=== PATIENT | male | born 1985 ===

== ENCOUNTER 2020-08-23 11:17 | Outpatient (REF) | payer OTHER, SELFPAY ==
[2020-08-23 14:14] LABS: Estimated Average Glucose 186 mg/dL; Hemoglobin A1c % 8.1 %
[2020-08-23 14:31] LABS: Creatinine Urine 103.78 mg/dL; Microalbum/Creatinine Ratio Ur 74.1 ug/mg cr
[2020-08-23 14:39] LABS: Alanine Aminotransferase 33 U/L (0-40); Albumin Level 4.5 g/dL (3.5-5.0); Alkaline Phosphatase 107 U/L (39-117); Anion Gap 17 (12-20); Aspartate Amino Transferase 21 U/L (5-37); Bilirubin Total 0.6 mg/dL (0.0-1.0); Blood Urea Nitrogen 15 mg/dL (9-16); Calcium 9.4 mg/dL (8.4-10.2); Carbon Dioxide 27 mmol/L (22-29); Chloride 102 mmol/L (96-108); Cholesterol 221 mg/dL; Estimated Glomerular Filt Rate > 60; Glucose Fasting 109 mg/dL (60-99); HDL Cholesterol 52 mg/dL; LDL Cholesterol Calculated 139 mg/dl; Potassium 4.8 mmol/L (3.3-5.1); Sodium 141 mmol/L (135-145); Total Protein 7.7 g/dL (6.5-8.0); Triglycerides 153 mg/dL
== END 2020-08-23 11:18 | disposition home or self-care (01) ==
LOC: HO.HMGCLDS 11:17
PROVIDERS: PCP Internal Medicine; Visit Provider Internal Medicine
DX: I10 Essential (primary) hypertension (principal); E78.5 Hyperlipidemia, unspecified; E11.9 Type 2 diabetes mellitus without complications
CPT/HCPCS: 36415; 80053; 80061; 82043; 83036

== ENCOUNTER 2020-10-04 09:35 | Outpatient (REF) | payer OTHER, SELFPAY ==
[2020-10-04 12:02] LABS: Anion Gap 15 (12-20); Blood Urea Nitrogen 16 mg/dL (9-16); Calcium 9.1 mg/dL (8.4-10.2); Carbon Dioxide 26 mmol/L (22-29); Chloride 104 mmol/L (96-108); Cholesterol 191 mg/dL; Estimated Glomerular Filt Rate > 60; Glucose Random 135 mg/dL (60-115); HDL Cholesterol 54 mg/dL; LDL Cholesterol Calculated 117 mg/dl; Potassium 4.5 mmol/L (3.3-5.1); Sodium 140 mmol/L (135-145); Triglycerides 100 mg/dL
== END 2020-10-04 09:36 | disposition home or self-care (01) ==
LOC: HO.HMGCLDS 09:35
PROVIDERS: PCP Internal Medicine; Visit Provider Internal Medicine
DX: E11.9 Type 2 diabetes mellitus without complications (principal); I10 Essential (primary) hypertension; E78.5 Hyperlipidemia, unspecified
CPT/HCPCS: 36415; 80048; 80061

== ENCOUNTER 2022-07-24 12:03 | Outpatient (REF) | payer OTHER, SELFPAY ==
[2022-07-24 14:16] LABS: MANUAL DIFF FLAG NO
[2022-07-24 14:29] LABS: Basophils Absolute Auto 0.1 X10*3/uL (0.0-0.2); Basophils Percent Auto 1.2 % (0-2); Eosinophils Absolute Auto 0.3 X10*3/uL (0.0-0.4); Eosinophils Percent Auto 2.3 % (0-4); Hematocrit 47.4 % (42.0-52.0); Hemoglobin 15.4 g/dl (14.0-18.0); Imm Gran Abs Auto 0.05 X10*3/uL (0.00-0.03); Imm Gran Pct Auto 0.4 % (0.0-0.4); Lymphocytes Percent Auto 17.2 % (20-40); Mean Corpuscular HGB Conc 32.5 g/dl (31.0-36.0); Mean Corpuscular Hemoglobin 27.5 pg (27.0-33.0); Mean Corpuscular Volume 84.6 fL (80.0-98.0); Mean Platelet Volume 11.4 fL (9.4-12.4); Monocytes Absolute Auto 0.6 X10*3/uL (0.1-1.2); Monocytes Percent Auto 5.1 % (2-11); Neutrophils Absolute Auto 8.5 x10*3/uL (2.0-8.3); Neutrophils Percent Auto 73.8 % (45-73); Platelet Count 316 X10*3/uL (160-400); Red Cell Distribution Width 15.3 % (11.0-16.0); White Blood Count 11.6 X10*3/uL (4.8-10.8)
[2022-07-24 14:41] LABS: Alanine Aminotransferase 19 U/L (0-40); Albumin Level 4.4 g/dL (3.5-5.0); Alkaline Phosphatase 130 U/L (39-117); Anion Gap 16 (12-20); Aspartate Amino Transferase 18 U/L (5-37); Bilirubin Total 0.7 mg/dL (0.0-1.0); Blood Urea Nitrogen 14 mg/dL (9-16); Calcium 9.3 mg/dL (8.4-10.2); Carbon Dioxide 23 mmol/L (22-29); Chloride 104 mmol/L (96-108); Cholesterol 256 mg/dL; Estimated Glomerular Filt Rate > 60; Glucose Fasting 343 mg/dL (60-99); HDL Cholesterol 55 mg/dL; LDL Cholesterol Calculated 166 mg/dl; Sodium 138 mmol/L (135-145); Total Protein 7.7 g/dL (6.5-8.0); Triglycerides 179 mg/dL
[2022-07-24 14:46] LABS: Estimated Average Glucose 197 mg/dL; Hemoglobin A1c % 8.5 %
[2022-07-24 15:20] LABS: Creatinine Urine 196.53 mg/dL; Microalbum/Creatinine Ratio Ur 98.7 ug/mg cr
== END 2022-07-24 12:04 | disposition home or self-care (01) ==
LOC: HO.HMGCLDS 12:03
PROVIDERS: PCP Internal Medicine; Visit Provider Internal Medicine
DX: Z00.00 Encounter for general adult medical examination without abnormal findings (principal); E11.9 Type 2 diabetes mellitus without complications; E78.5 Hyperlipidemia, unspecified; I10 Essential (primary) hypertension
CPT/HCPCS: 36415; 80053; 80061; 82043; 83036; 85025

== ENCOUNTER 2022-10-09 11:48 | Outpatient (REF) | payer OTHER, SELFPAY ==
[2022-10-09 14:11] LABS: Alanine Aminotransferase 17 U/L (0-40); Alkaline Phosphatase 107 U/L (39-117); Anion Gap 13 (12-20); Aspartate Amino Transferase 13 U/L (5-37); Bilirubin Total 0.8 mg/dL (0.0-1.0); Blood Urea Nitrogen 10 mg/dL (9-16); Calcium 8.9 mg/dL (8.4-10.2); Carbon Dioxide 26 mmol/L (22-29); Chloride 101 mmol/L (96-108); Cholesterol 151 mg/dL; Estimated Average Glucose 186 mg/dL; Estimated Glomerular Filt Rate > 60; Glucose Fasting 230 mg/dL (60-99); HDL Cholesterol 45 mg/dL; Hemoglobin A1c % 8.1 %; LDL Cholesterol Calculated 83 mg/dl; Potassium 4.7 mmol/L (3.3-5.1); Sodium 135 mmol/L (135-145); Total Protein 6.7 g/dL (6.5-8.0); Triglycerides 118 mg/dL
== END 2022-10-09 11:49 | disposition home or self-care (01) ==
LOC: HO.HMGCLDS 11:48
PROVIDERS: PCP Internal Medicine; Visit Provider Internal Medicine
DX: E11.9 Type 2 diabetes mellitus without complications (principal); I10 Essential (primary) hypertension; E78.5 Hyperlipidemia, unspecified
CPT/HCPCS: 36415; 80053; 80061; 83036

== ENCOUNTER 2023-10-29 11:33 | Outpatient (AMB) | payer OTHER, SELFPAY ==
--- NOTE | 2023-10-29 11:52 | A.OFFPC_ITS ---
Vital Signs 10/29/23 11:53 Height 5 ft 10 in Weight 231 lb 2 oz BMI 33.2 BP 139/89 Blood Pressure Location Rt brachial Position Sitting Pulse 91 Pulse Source Pulse Oximeter Pulse Oximetry (%) 99 Oxygen Delivery Method Room Air Intake Visit Reasons: PE Intake Note: Pt is here today for PE. Allergies No Known Allergies Allergy (Verified 10/29/23 12:19) Medication List - Last Reconciled 10/29/23 by Micheline Diaz MD blood sugar diagnostic As directed insulin pump cart,cont inf,BT (Omnipod Dash Pods (Gen 4) subcutaneous cartridge) As directed lancets As directed losartan 100 mg PO DAILY omeprazole 20 mg PO DAILY pen needle, diabetic As directed rosuvastatin (Crestor) 20 mg PO DAILY Tobacco use date assessed: 10/29/23 Dental Screening Dental Screen Date: 10/29/23 Did you have a dental visit in the last 12 months?: Yes Did you have a dental problem in the last 6 months where you did not have access to dental care?: No Was dental information given to patient?: Patient has dentist HPI PE HPI Details Pt presents for PE. HE FOLLOWS UP WITH [facility] ENDOCRINOLOGY FOR TYPE 1 DIABETES CONTROLLED ON INSULIN PUMP [facility] Medical History (Updated 10/29/23 @ 12:52 by Micheline Diaz MD) Annual physical exam Obesity Hyperlipidemia HTN (hypertension) Family History Father Hypertension Diabetes Mother No problems noted. Social History Household Members Other:: works for [employer] [facility] Alcohol intake: current Alcohol intake frequency: a few times a week Patient Tobacco Use Status: Never used Tobacco e-Cigarette/Vaping Use: Former Use Current occupational status: employed Cognitive needs: No Hearing needs: No Vision needs: No Questionnaire PHQ-9 Over the last 2 weeks, how often have you been bothered by any of the following problems? 1. Little interest or pleasure in doing things: not at all 2. Feeling down, depressed, or hopeless: not at all 3. Trouble falling or staying asleep, or sleeping too much: not at all 4. Feeling tired or having little energy: not at all 5. Poor appetite or overeating: not at all 6. Feeling bad about yourself - or that you are a failure or have let yourself or your family down: not at all 7. Trouble concentrating on things, such as reading the newspaper or watching television: not at all 8. Moving or speaking so slowly that other people could have noticed. Or the opposite - being so fidgety or restless that you have been moving around a lot more than usual: not at all 9. Thoughts that you would be better off or of hurting yourself in some way: not at all Total score: 0 Depression Screening Interpretation: Negative Depression Screening Done: Yes Source: Developed by Drs. Levi Villalobos, Anna Marie Seaman, Roger Elizabeth and colleagues, with an educational breanna from [employer]. Thrive Questionnaire Date Thrive assessed: 10/29/23 I am a: Patient What is your living situation today?: I have a steady place to live Within the past 12 months, did the food you bought not last and you didn't have the money to get more?: Never true Within the past 12 months, did you worry whether your food would run out before you got money to buy more?: Never true Do you have trouble paying for medicines?: No Do you have trouble getting transportation to medical appointments?: No Do you have trouble paying your heating and electricity bill?: No Do you have trouble taking care of your child, family member or friend?: No Do you have trouble with day-to-day activities such as bathing, preparing meals, shopping, managing finances, etc.?: No Are you currently unemployed and looking for a job?: No Are you interested in more education?: No Please select the resources that you would like help with: None THRIVE Score: 0 AUDIT C Alcohol Use Questionnaire (AUDIT-C) 1. How often do you have a drink containing alcohol?: 2-4 times a month 2. How many drinks containing alcohol do you have on a typical day when you are drinking?: 1 or 2 3. How often do you have six or more drinks on one occasion?: Never Total Score: 2 Score Reviewed/Action Taken: Yes SHILO-7 AMB Questionnaire SHILO-7 Date SHILO - 7 assessed: 10/29/23 Feeling nervous, anxious, or on edge: 0 = Not at all Not being able to stop or control worryin = Not at all Worrying too much about different things: 0 = Not at all Trouble relaxin = Not at all Being so restless that it is hard to sit still: 0 = Not at all Becoming easily annoyed or irritable: 0 = Not at all Feeling afraid as if something awful might happen: 0 = Not at all Total SHILO-7 score (0-4 normal; 5-9 mild; 10-14 moderate; 15-21 severe): 0 Source: Developed by Drs. Levi Villalobos, Anna Marie Seaman, Roger Elizabeth and colleagues, with an educational breanna from [employer]. Review of Systems Const All systems reviewed & are unremarkable except as noted in HPI and below Reports no additional complaints Eyes Reports no additional complaints ENT Reports no additional complaints Card Reports no additional complaints Resp Reports no additional complaints GI Reports no additional complaints Reports no additional complaints Physical exam (Primary Care) Vital Signs: Last Vital Signs Pulse 91 10/29/23 11:53 BP 156/88 H 10/29/23 11:53 Pulse Ox 99 10/29/23 11:53 Oxygen Delivery Method Room Air 10/29/23 11:53 BMI result Body Mass Index 33.2 Tobacco/Smoking Status: Tobacco use Status Tobacco use date assessed 10/29/23 10/29/23 11:56 Patient Tobacco Use Status Never used Tobacco 10/29/23 11:56 e-Cigarette/Vaping Use Former Use 10/29/23 11:56 Depression Screening Interpretation: Negative Thrive Assessment: Date of Thrive Assessment Date Thrive assessed 07/24/22 10/29/23 11:56 Const General: no acute distress HENMT Head: Yes normal to inspection Face and sinus: Yes normal facial exam Eyes General: appearance normal, both eyes and all related structures Neck Neck: Yes no lymphadenopathy and Yes supple Resp Effort & Inspection: normal respiratory effort Auscultation: clear to auscultation bilaterally Cardio Rhythm: regular rhythm Heart sounds: S1 normal heart sound present and S2 normal heart sound present GI Inspection: Yes normal to inspection Palpation (GI): Soft to palpation Percussion: Yes normal to percussion Auscultation: normal bowel sounds Extrem Other: Diabetic foot exam skin is intact monofilament and vibration sensation intact bilaterally Assessment and Plan Assessment & Plan (1) Microalbuminuria: Comment: due to IDDM, Code(s): R80.9 - Proteinuria, unspecified (2) HTN (hypertension): Code(s): I10 - Essential (primary) hypertension Plan: Change losartan to amlodipine/olmesartan 5/40 return in 6 weeks, check comprehensive panel in 5 weeks (3) Hyperlipidemia: Comment: Atorvastatin caused diarrhea Code(s): E78.5 - Hyperlipidemia, unspecified (4) Type 1 diabetes: Comment: Follows up with [facility] endocrinology A1c 7.9 09/2023 Code(s): E10.9 - Type 1 diabetes mellitus without complications Plan: Continue current treatment follow-up with [facility] endocrinology, ADA diet increase exercise weight loss discussed with the patient (5) Obesity: Code(s): E66.9 - Obesity, unspecified Plan: Increase physical activity and weight loss discussed with the patient (6) Annual physical exam: Code(s): Z00.00 - Encounter for general adult medical examination without abnormal findings Plan: Well-balanced diet regular exercise weight loss discussed with the patient Orders: Orders Comprehensive [place]. Panel Fast 5 Weeks I10 - Essential (primary) hypertension Medications: New amlodipine-olmesartan 5-40 mg 1 tab PO DAILY 90 tabs 0RF ketoconazole 2% 1 appl topical DAILY 60 grams 1RF Discontinued losartan Discontinued Reason: Doctor's Order 100 mg PO DAILY 90 tabs 3RF Coding Level of Care Code Complex EM visit Add On G2211 Diagnoses Microalbuminuria R80.9 HTN (hypertension) I10 Hyperlipidemia E78.5 Type 1 diabetes E10.9 Obesity E66.9 Annual physical exam Z00.00
[2023-10-29 11:53] VITALS: BP 139/89; PULSE 91; O2SAT 99; BMI 33.2
== END 2023-10-29 12:54 | disposition home or self-care (01) ==
PROVIDERS: Visit Provider Internal Medicine
DX: Z00.00 Encounter for general adult medical examination without abnormal findings (principal); E10.9 Type 1 diabetes mellitus without complications; R80.9 Proteinuria, unspecified; I10 Essential (primary) hypertension; E78.5 Hyperlipidemia, unspecified; E66.9 Obesity, unspecified
CPT/HCPCS: 99396

== ENCOUNTER 2024-01-11 06:21 | Outpatient (REF) | payer OTHER, SELFPAY ==
[2024-01-11 09:58] LABS: MANUAL DIFF FLAG NO
[2024-01-11 10:07] LABS: Basophils Absolute Auto 0.1 X10*3/uL (0.0-0.2); Basophils Percent Auto 1.7 % (0-2); Eosinophils Absolute Auto 0.3 X10*3/uL (0.0-0.4); Hematocrit 45.5 % (42.0-52.0); Hemoglobin 14.8 g/dl (14.0-18.0); Imm Gran Abs Auto 0.02 X10*3/uL (0.00-0.03); Imm Gran Pct Auto 0.2 % (0.0-0.4); Lymphocytes Absolute Auto 2.4 X10*3/uL (1.2-4.9); Lymphocytes Percent Auto 28.4 % (20-40); Mean Corpuscular HGB Conc 32.5 g/dl (31.0-36.0); Mean Corpuscular Hemoglobin 26.5 pg (27.0-33.0); Mean Corpuscular Volume 81.4 fL (80.0-98.0); Mean Platelet Volume 12.2 fL (9.4-12.4); Monocytes Absolute Auto 0.5 X10*3/uL (0.1-1.2); Monocytes Percent Auto 6.3 % (2-11); Neutrophils Absolute Auto 5.1 x10*3/uL (2.0-8.3); Neutrophils Percent Auto 60.4 % (45-73); Platelet Count 244 X10*3/uL (160-400); Red Blood Count 5.59 X10*6/uL (4.60-5.80); Red Cell Distribution Width 15.2 % (11.0-16.0); White Blood Count 8.4 X10*3/uL (4.8-10.8)
[2024-01-11 10:37] LABS: Alanine Aminotransferase 31 U/L (0-40); Albumin Level 4.3 g/dL (3.5-5.0); Alkaline Phosphatase 99 U/L (39-117); Anion Gap 11 (12-20); Aspartate Amino Transferase 29 U/L (5-37); Bilirubin Total 0.7 mg/dL (0.0-1.0); Blood Urea Nitrogen 13 mg/dL (9-16); Calcium 9.1 mg/dL (8.4-10.2); Carbon Dioxide 28 mmol/L (22-29); Chloride 106 mmol/L (96-108); Cholesterol 154 mg/dL (<200); Estimated Glomerular Filt Rate > 60; Glucose Fasting 139 mg/dL (60-99); HDL Cholesterol 54 mg/dL (>40); LDL Cholesterol Calculated 83 mg/dL (<100); Potassium 3.9 mmol/L (3.3-5.1); Sodium 141 mmol/L (135-145); Total Protein 7.2 g/dL (6.5-8.0); Triglycerides 87 mg/dL (<150)
[2024-01-11 10:49] LABS: Estimated Average Glucose 177 mg/dL; Hemoglobin A1c % 7.8 % (<6.0)
[2024-01-11 11:49] LABS: Creatinine Urine 265.77 mg/dL; Microalbum/Creatinine Ratio Ur 34.9 ug/mg cr (<30)
== END 2024-01-11 06:22 | disposition home or self-care (01) ==
LOC: HO.HMGCLDS 06:21
PROVIDERS: PCP Internal Medicine; Visit Provider Internal Medicine
DX: R80.9 Proteinuria, unspecified (principal); E11.9 Type 2 diabetes mellitus without complications; I10 Essential (primary) hypertension; E78.5 Hyperlipidemia, unspecified
CPT/HCPCS: 36415; 80053; 80061; 82043; 82570; 83036; 85025

== ENCOUNTER 2024-01-21 11:13 | Outpatient (AMB) | payer OTHER, SELFPAY ==
[2024-01-21 11:33] VITALS: BP 122/84; PULSE 73; O2SAT 96; BMI 33.1
--- NOTE | 2024-01-21 11:33 | A.OFFPC_ITS ---
Vital Signs 01/21/24 11:33 Height 5 ft 10 in Weight 231 lb BMI 33.1 BP 122/84 Blood Pressure Location Lt brachial Position Sitting Pulse 73 Pulse Source Pulse Oximeter Pulse Oximetry (%) 96 Oxygen Delivery Method Room Air Intake Visit Reasons: 6 week follow up Intake Note: Pt is here today for 6 weeks follow up visit. Allergies No Known Allergies Allergy (Verified 01/21/24 11:35) Tobacco use date assessed: 10/29/23 Dental Screening Dental Screen Date: 10/29/23 HPI 6 week follow up HPI Details Pt presents for f/u HTN, IDDM, stable on meds. [facility] Medical History (Updated 10/29/23 @ 12:52 by Micheline Diaz MD) Annual physical exam Obesity Hyperlipidemia HTN (hypertension) Family History Father Hypertension Diabetes Mother No problems noted. Social History Household Members Other:: works for [employer] [facility] Alcohol intake: current Alcohol intake frequency: a few times a week Patient Tobacco Use Status: Never used Tobacco e-Cigarette/Vaping Use: Former Use service: No Current occupational status: employed Cognitive needs: No Hearing needs: No Vision needs: No Questionnaire PHQ-9 Over the last 2 weeks, how often have you been bothered by any of the following problems? 1. Little interest or pleasure in doing things: not at all 2. Feeling down, depressed, or hopeless: not at all 3. Trouble falling or staying asleep, or sleeping too much: not at all 4. Feeling tired or having little energy: not at all 5. Poor appetite or overeating: not at all 6. Feeling bad about yourself - or that you are a failure or have let yourself or your family down: not at all 7. Trouble concentrating on things, such as reading the newspaper or watching television: not at all 8. Moving or speaking so slowly that other people could have noticed. Or the opposite - being so fidgety or restless that you have been moving around a lot more than usual: not at all 9. Thoughts that you would be better off or of hurting yourself in some way: not at all Total score: 0 Depression Screening Interpretation: Negative Depression Screening Done: Yes Source: Developed by Drs. Levi Villalobos, Anna Marie Seaman, Roger Elizabeth and colleagues, with an educational breanna from [employer]. Thrive Questionnaire Date Thrive assessed: 10/29/23 I am a: Patient What is your living situation today?: I have a steady place to live Within the past 12 months, did the food you bought not last and you didn't have the money to get more?: Never true Within the past 12 months, did you worry whether your food would run out before you got money to buy more?: Never true Do you have trouble paying for medicines?: No Do you have trouble getting transportation to medical appointments?: No Do you have trouble paying your heating and electricity bill?: No Do you have trouble taking care of your child, family member or friend?: No Do you have trouble with day-to-day activities such as bathing, preparing meals, shopping, managing finances, etc.?: No Are you currently unemployed and looking for a job?: No Are you interested in more education?: No Please select the resources that you would like help with: None Currently or been in a relationship where the following occur: No concerns reported THRIVE Score: 0 AUDIT C Alcohol Use Questionnaire (AUDIT-C) 1. How often do you have a drink containing alcohol?: 2-4 times a month 2. How many drinks containing alcohol do you have on a typical day when you are drinking?: 1 or 2 3. How often do you have six or more drinks on one occasion?: Never Total Score: 2 SHILO-7 AMB Questionnaire SHILO-7 Date SHILO - 7 assessed: 10/29/23 Feeling nervous, anxious, or on edge: 0 = Not at all Not being able to stop or control worryin = Not at all Worrying too much about different things: 0 = Not at all Trouble relaxin = Not at all Being so restless that it is hard to sit still: 0 = Not at all Becoming easily annoyed or irritable: 0 = Not at all Feeling afraid as if something awful might happen: 0 = Not at all Total SHILO-7 score (0-4 normal; 5-9 mild; 10-14 moderate; 15-21 severe): 0 Source: Developed by Drs. Levi Villalobos, Anna Marie Seaman, Roger Elizabeth and colleagues, with an educational breanna from [employer]. Review of Systems Const All systems reviewed & are unremarkable except as noted in HPI and below Eyes Reports no additional complaints Card Reports no additional complaints Resp Reports no additional complaints GI Reports no additional complaints Physical exam (Primary Care) Vital Signs: Last Vital Signs Pulse 73 01/21/24 11:33 BP 122/84 01/21/24 11:33 Pulse Ox 96 01/21/24 11:33 Oxygen Delivery Method Room Air 01/21/24 11:33 BMI result Body Mass Index 33.1 Tobacco/Smoking Status: Tobacco use Status Tobacco use date assessed 10/29/23 01/21/24 11:36 Patient Tobacco Use Status Never used Tobacco 01/21/24 11:36 e-Cigarette/Vaping Use Former Use 01/21/24 11:36 Depression Screening Interpretation: Negative Thrive Assessment: Date of Thrive Assessment Date Thrive assessed 10/29/23 01/21/24 11:36 Currently or been in a relationship where the following occur: No concerns reported Const General: no acute distress HENMT Throat: Yes posterior oropharynx normal Eyes General: appearance normal, both eyes and all related structures Neck Neck: Yes supple Resp Effort & Inspection: normal respiratory effort Auscultation: clear to auscultation bilaterally Cardio Rhythm: regular rhythm Heart sounds: S1 normal heart sound present and S2 normal heart sound present Assessment and Plan Assessment & Plan (1) Type 1 diabetes: Comment: Follows up with [facility] endocrinology A1c 7.9 09/2023 Code(s): E10.9 - Type 1 diabetes mellitus without complications Plan: cont Insulin pod, ADA diet, exercise, weight loss discussed (2) HTN (hypertension): Code(s): I10 - Essential (primary) hypertension Plan: Continue current medications increase physical activity as discussed with the patient follow-up in 2 months (3) Hyperlipidemia: Comment: Atorvastatin caused diarrhea Code(s): E78.5 - Hyperlipidemia, unspecified Plan: Continue crestor Coding Level of Care Code Est Pt Level 4 (10757) Diagnoses Type 1 diabetes E10.9 HTN (hypertension) I10 Hyperlipidemia E78.5
== END 2024-01-21 12:23 | disposition home or self-care (01) ==
PROVIDERS: PCP Internal Medicine; Visit Provider Internal Medicine
DX: E10.9 Type 1 diabetes mellitus without complications (principal); I10 Essential (primary) hypertension; E78.5 Hyperlipidemia, unspecified
CPT/HCPCS: 99214

== ENCOUNTER 2024-03-24 12:14 | Outpatient (AMB) | payer OTHER, SELFPAY ==
[2024-03-24 12:33] VITALS: BP 116/66; PULSE 80; O2SAT 97; BMI 33.6
--- NOTE | 2024-03-24 12:33 | A.OFFPC_ITS ---
Vital Signs 03/24/24 12:33 Height 5 ft 10 in Weight 234 lb BMI 33.6 BP 116/66 Blood Pressure Location Rt brachial Position Sitting Pulse 80 Pulse Source Pulse Oximeter Pulse Oximetry (%) 97 Oxygen Delivery Method Room Air Intake Visit Reasons: 2 months f/up Intake Note: Pt is here today for 2 months follow up visit. Allergies No Known Allergies Allergy (Verified 03/24/24 12:34) Medication List - Last Reconciled 03/24/24 by Micheline Diaz MD amlodipine-olmesartan 5-40 mg 1 tab PO DAILY blood sugar diagnostic As directed clotrimazole-betamethasone 1-0.05 % 1 appl topical BID 4 weeks insulin pump cart,cont inf,BT (Omnipod Dash Pods (Gen 4) subcutaneous cartridge) As directed lancets As directed omeprazole 20 mg PO DAILY pen needle, diabetic As directed rosuvastatin (Crestor) 20 mg PO DAILY Tobacco use date assessed: 03/24/24 Dental Screening Dental Screen Date: 10/29/23 HPI 2 months f/up HPI Details Patient presents since for the follow-up on hypertension hyperlipidemia type 1 diabetes controlled on insulin pump [facility] Medical History Annual physical exam Obesity Hyperlipidemia HTN (hypertension) Surgical History No pertinent past surgical history Family History Father Hypertension Diabetes Mother No problems noted. Social History Household Members Other:: works for [employer] Housing: Condominium Alcohol intake: current Alcohol intake frequency: a few times a week Patient Tobacco Use Status: Never used Tobacco e-Cigarette/Vaping Use: Former Use service: No Current occupational status: employed Cognitive needs: No Hearing needs: No Vision needs: No Questionnaire PHQ-9 Over the last 2 weeks, how often have you been bothered by any of the following problems? 3. Trouble falling or staying asleep, or sleeping too much: not at all 4. Feeling tired or having little energy: not at all Source: Developed by Drs. Levi Villalobos, Anna Marie B.Roger Rivas and colleagues, with an educational breanna from [employer]. Thrive Questionnaire Date Thrive assessed: 01/21/24 I am a: Patient What is your living situation today?: I have a steady place to live Within the past 12 months, did the food you bought not last and you didn't have the money to get more?: Never true Within the past 12 months, did you worry whether your food would run out before you got money to buy more?: Never true Do you have trouble paying for medicines?: No Do you have trouble getting transportation to medical appointments?: No Do you have trouble paying your heating and electricity bill?: No Do you have trouble taking care of your child, family member or friend?: No Do you have trouble with day-to-day activities such as bathing, preparing meals, shopping, managing finances, etc.?: No Are you currently unemployed and looking for a job?: No Are you interested in more education?: No Please select the resources that you would like help with: None Currently or been in a relationship where the following occur: No concerns reported THRIVE Score: 0 SHILO-7 AMB Questionnaire SHILO-7 Date SHILO - 7 assessed: 10/29/23 Source: Developed by Drs. Levi Villalobos, Roger Portillo and colleagues, with an educational breanna from [employer]. Review of Systems Const All systems reviewed & are unremarkable except as noted in HPI and below ENT Reports no additional complaints Card Reports no additional complaints Resp Reports no additional complaints GI Reports no additional complaints Reports no additional complaints Physical exam (Primary Care) Vital Signs: Last Vital Signs Pulse 80 03/24/24 12:33 BP 116/66 03/24/24 12:33 Pulse Ox 97 03/24/24 12:33 Oxygen Delivery Method Room Air 03/24/24 12:33 BMI result Body Mass Index 33.6 Tobacco/Smoking Status: Tobacco use Status Tobacco use date assessed 03/24/24 03/24/24 12:37 Patient Tobacco Use Status Never used Tobacco 03/24/24 12:37 e-Cigarette/Vaping Use Former Use 03/24/24 12:37 Thrive Assessment: Date of Thrive Assessment Date Thrive assessed 01/21/24 03/24/24 12:37 Currently or been in a relationship where the following occur: No concerns reported Const General: no acute distress HENMT Face and sinus: Yes normal facial exam Eyes General: appearance normal, both eyes and all related structures Resp Effort & Inspection: normal respiratory effort Auscultation: clear to auscultation bilaterally Cardio Rhythm: regular rhythm Heart sounds: S1 normal heart sound present and S2 normal heart sound present GI Inspection: Yes normal to inspection Palpation (GI): Soft to palpation Percussion: Yes normal to percussion Auscultation: normal bowel sounds Coding Level of Care Code Est Pt Level 4 (59065) Diagnoses Type 1 diabetes E10.9 HTN (hypertension) I10 Hyperlipidemia E78.5 Microalbuminuria R80.9 Assessment & Plan Assessment & Plan (1) Type 1 diabetes: Comment: Follows up with [facility] endocrinology A1c 7.9 09/2023 Code(s): E10.9 - Type 1 diabetes mellitus without complications Category: Medical Plan: Continue insulin pump follow-up with [facility] endocrinology (2) HTN (hypertension): Code(s): I10 - Essential (primary) hypertension Category: Medical Plan: Continue current medications (3) Hyperlipidemia: Comment: Atorvastatin caused diarrhea Code(s): E78.5 - Hyperlipidemia, unspecified Category: Medical Plan: Continue statin, return in 6 months with a fasting labs before (4) Microalbuminuria: Comment: due to IDDM, Code(s): R80.9 - Proteinuria, unspecified Category: Medical Plan: Monitor and continue ARB Orders: Orders Hemoglobin A1c 6 Months E10.9 - Type 1 diabetes mellitus without complications, E78.5 - Hyperlipidemia, unspecified, I10 - Essential (primary) hypertension, R80.9 - Proteinuria, unspecified Lipid Panel 6 Months E10.9 - Type 1 diabetes mellitus without complications, E78.5 - Hyperlipidemia, unspecified, I10 - Essential (primary) hypertension, R80.9 - Proteinuria, unspecified Microalbumin, Random (w Creat) 6 Months E10.9 - Type 1 diabetes mellitus without complications, E78.5 - Hyperlipidemia, unspecified, I10 - Essential (primary) hypertension, R80.9 - Proteinuria, unspecified Comprehensive [place]. Panel Fast 6 Months E10.9 - Type 1 diabetes mellitus without complications, E78.5 - Hyperlipidemia, unspecified, I10 - Essential (primary) hypertension, R80.9 - Proteinuria, unspecified Medications: New clotrimazole-betamethasone 1-0.05 % 1 appl topical BID 4 weeks 90 grams 3RF Discontinued ketoconazole 2% Discontinued Reason: Doctor's Order 1 appl topical DAILY 60 grams 1RF
== END 2024-03-24 13:13 | disposition home or self-care (01) ==
LOC: HO.HMCC 12:15
PROVIDERS: PCP Internal Medicine; Visit Provider Internal Medicine
DX: E10.9 Type 1 diabetes mellitus without complications (principal); I10 Essential (primary) hypertension; E78.5 Hyperlipidemia, unspecified; R80.9 Proteinuria, unspecified

== ENCOUNTER → 2024-03-24 12:14 | Outpatient (BNVA) | payer OTHER, SELFPAY | PROVIDERS: PCP Internal Medicine; Visit Provider Internal Medicine ==